=== PATIENT | male | born 1955 | race Caucasian/White ===

== ENCOUNTER → 2017-05-01 | Day surgery (SDC) | payer OTHER, BC ==
[~2017-05-01] MED LIST: Lactated Ringers 1,000 ML IV SCH; Midazolam 1 MG/ML 2 ML SDV ONE; Ondansetron 4 MG Tab.DIS PO PRN; Ondansetron 4 MG/2 ML SDV ONE; Propofol 200 MG/20 ML SDV ONE; fentaNYL 100 MCG/2 ML SDV ONE
--- NOTE | 2017-05-01 10:51 | PCM.PREANE ---
Preanesthetic Assessment - Anesthesia/Transfusion/Family Hx Anesthesia History: Prior Anesthesia Without Reaction Family History of Anesthesia Reaction: No Transfusion History: No Prior Transfusion(s) - Review of Systems General: No Symptoms Pulmonary: No Symptoms Cardiovascular: No Symptoms Gastrointestinal: No Symptoms Neurological: No Symptoms Other: Reports: None - Physical Assessment NPO Status Date: 04/30/17 O2 Sat by Pulse Oximetry: 95 Respiratory Rate: 16 Vital Signs: Last Vital Signs Temp 36.1 C 05/01/17 09:39 Pulse 86 05/01/17 09:39 Resp 16 05/01/17 09:39 BP 136/79 05/01/17 09:39 Pulse Ox 95 05/01/17 09:39 Height: 1.83 m Weight: 98.883 kg ASA Class: 2 Mental Status: Alert & Oriented x3 Airway Class: Mallampati = 1 Dentition: Reports: Normal Dentition ROM/Head Extension: Full Lungs: Clear to Auscultation, Normal Respiratory Effort Cardiovascular: Regular Rate, Regular Rhythm - Allergies Allergies/Adverse Reactions: Allergies Allergy/AdvReac Type Severity Reaction Status Date / Time acetaminophen Allergy Itching Verified 04/26/17 11:32 [From Darvocet-N] allopurinol Allergy Rash Verified 04/26/17 11:32 propoxyphene Allergy Itching Verified 04/26/17 11:32 [From Darvocet-N] - Anesthesia Plan Pre-Op Medication Ordered: None - Acknowledgements Anesthesia Type Planned: MAC Pt an Appropriate Candidate for the Planned Anesthesia: Yes Alternatives and Risks of Anesthesia Discussed w Pt/Guardian: Yes Pt/Guardian Understands and Agrees with Anesthesia Plan: Yes PreAnesthesia Questionnaire Cardiovascular History: Reports: High Cholesterol Musculoskeletal History: Reports: Back Pain, Chronic, Gout Endocrine/Metabolic History: Reports: Diabetes, Type II - Past Surgical History Head Surgeries/Procedures: Reports: None Musculoskeletal Surgical History: Reports: Other (See Below) Other Musculoskeletal Surgeries/Procedures:: hx surgical excision of cyst - SUBSTANCE USE Smoking Status *Q: Never Smoker Recreational Drug Use History: No - HOME MEDS Home Medications: Home Meds Aspirin [Steuben Aspirin] 81 mg PO DAILY 04/26/17 [History] Cyclobenzaprine HCl 10 mg PO ASDIRECTED PRN 04/26/17 [History] Diclofenac Sodium [Voltaren] 75 mg PO BID PRN 04/26/17 [History] Multivitamin [Multivitamins] 1 tab PO DAILY 04/26/17 [History] Probenecid 500 mg PO BID 04/26/17 [History] Rosuvastatin Calcium 40 mg PO DAILY 04/26/17 [History] - CURRENT (IN HOUSE) MEDS Current Meds: Current Medications Lactated Ringer's (Ringers, Lactated) 1,000 mls @ 125 mls/hr IV ASDIRECTED MARY
--- NOTE | 2017-05-01 12:32 | PCM.OPNOTE ---
- General Post-Op/Procedure Note Date of Surgery/Procedure: 05/01/17 Operative Procedure(s): Colonoscopy with snare rectal polypectomy Pre Op Diagnosis: Desire for colorectal cancer screening Post-Op Diagnosis: Rectal polyp. Sigmoid diverticulosis. Anesthesia Technique: MAC (ASA II) Primary Surgeon: Darryl Garcia Mill Control Operator: Papi Betts Condition: Good Free Text/Narrative:: DICTATION [id number] CPT CODE 83030
--- NOTE | 2017-05-01 12:44 | PCM.POSTAN ---
POST ANESTHESIA ASSESSMENT - MENTAL STATUS Mental Status: Alert, Oriented - RESPIRATORY Respiratory Status: Respiratory Rate WNL, Airway Patent, O2 Saturation Stable - CARDIOVASCULAR CV Status: Pulse Rate WNL, Blood Pressure Stable - GASTROINTESTINAL GI Status: No Symptoms - POST OP HYDRATION Hydration Status: Adequate & Stable
--- NOTE | 2017-05-01 12:45 | PCM48HPAN ---
Post Anesthesia Note - EVALUATION WITHIN 48HRS OF ANESTHETIC Vital Signs in Normal Range: Yes Patient Participated in Evaluation: Yes Respiratory Function Stable: Yes Airway Patent: Yes Cardiovascular Function Stable: Yes Hydration Status Stable: Yes Pain Control Satisfactory: Yes Nausea and Vomiting Control Satisfactory: Yes Mental Status Recovered: Yes Resp Rate: 17
--- NOTE | 2017-05-02 09:43 | OR ---
SURGEON: Darryl Garcia M.D. DATE OF PROCEDURE: 05/01/2017 OPERATION PERFORMED: Colonoscopy with snare rectal polypectomy. STOCKFEED MILLER: Dr. Papi Betts, PGY3. ANESTHESIA: MAC. ASA CLASSIFICATION: II. PREOPERATIVE DIAGNOSIS: Desire for colorectal cancer screening. POSTOPERATIVE DIAGNOSES: 1. Rectal polyp. 2. Sigmoid diverticulosis. DESCRIPTION OF PROCEDURE: The patient was taken to the endoscopy room and positioned on the endoscopy table in the left lateral decubitus position. Time-out was called for appropriate identification of patient and procedure. Monitored anesthesia care was provided. The colonoscope was inserted into the rectum and advanced with minimal difficulty to the cecum, where the colonoscope was retroflexed to visualize the ascending colon from below. The colonoscope was then straightened and slowly withdrawn. The cecum, ascending colon, hepatic flexure, transverse colon, splenic flexure, and descending colon showed no tumors, polyps, diverticula, or angiodysplastic changes. Sigmoid colon demonstrates moderate diverticular change. No stricture, spasm, or bleeding was noted. The colonoscope was then withdrawn to the distal rectum, where a 1 cm polyp was identified. This was removed with the snare electrocautery and recovered. The surgical site was inspected for hemostasis, and no bleeding was noted. The colonoscope was then retroflexed in the rectum to visualize the anal orifice from above. Again, no tumors or polyps were seen, and there were no acute hemorrhoidal changes. The colonoscope was then straightened, the rectum aspirated, and the colonoscope removed. The patient tolerated the procedure well and was taken to recovery room in stable condition. SIMI / JIHAN /[id number]
== END | disposition home or self-care (01) ==
LOC: MW.SDS 09:30
PROVIDERS: ATTEND Surgery
DX: Z12.11 Encounter for screening for malignant neoplasm of colon (principal); D12.7 Benign neoplasm of rectosigmoid junction; K57.30 Diverticulosis of large intestine without perforation or abscess without bleeding; K40.20 Bilateral inguinal hernia, without obstruction or gangrene, not specified as recurrent; M19.90 Unspecified osteoarthritis, unspecified site; M10.9 Gout, unspecified; E78.00 Pure hypercholesterolemia, unspecified; E11.9 Type 2 diabetes mellitus without complications; F17.210 Nicotine dependence, cigarettes, uncomplicated; Z88.8 Allergy status to other drugs, medicaments and biological substances; Z79.82 Long term (current) use of aspirin; Z79.899 Other long term (current) drug therapy
CPT/HCPCS: 45385; 88305; J2250; J2405; J3010; 00811; J2704

== ENCOUNTER 2017-05-05 07:33 | Day surgery (SDC) | payer BC, OTHER ==
--- NOTE | 2017-05-05 07:22 | PCM.PREANE ---
Preanesthetic Assessment - Anesthesia/Transfusion/Family Hx Anesthesia History: Prior Anesthesia Without Reaction Family History of Anesthesia Reaction: No Transfusion History: No Prior Transfusion(s) - Review of Systems General: No Symptoms Pulmonary: No Symptoms Cardiovascular: No Symptoms Gastrointestinal: No Symptoms Neurological: No Symptoms Other: Reports: None - Physical Assessment NPO Status Date: 05/04/17 Height: 1.83 m Weight: 98.883 kg ASA Class: 2 Mental Status: Alert & Oriented x3 Airway Class: Mallampati = 1 Dentition: Reports: Normal Dentition ROM/Head Extension: Full Lungs: Clear to Auscultation, Normal Respiratory Effort Cardiovascular: Regular Rate, Regular Rhythm - Allergies Allergies/Adverse Reactions: Allergies Allergy/AdvReac Type Severity Reaction Status Date / Time acetaminophen Allergy Itching Verified 05/02/17 07:37 [From Darvocet-N] allopurinol Allergy Rash Verified 05/02/17 07:37 propoxyphene Allergy Itching Verified 05/02/17 07:37 [From Darvocet-N] - Acknowledgements Anesthesia Type Planned: General Anesthesia Pt an Appropriate Candidate for the Planned Anesthesia: Yes Alternatives and Risks of Anesthesia Discussed w Pt/Guardian: Yes Pt/Guardian Understands and Agrees with Anesthesia Plan: Yes PreAnesthesia Questionnaire HEENT History: Reports: Other (See Below) Other HEENT History: wears glasses Cardiovascular History: Reports: High Cholesterol Gastrointestinal History: Reports: None Musculoskeletal History: Reports: Back Pain, Chronic, Gout Endocrine/Metabolic History: Reports: Diabetes, Type II - Past Surgical History Head Surgeries/Procedures: Reports: None GI Surgical History: Reports: Colonoscopy Musculoskeletal Surgical History: Reports: Other (See Below) Other Musculoskeletal Surgeries/Procedures:: hx surgical excision of cyst - SUBSTANCE USE Smoking Status *Q: Never Smoker Recreational Drug Use History: No - HOME MEDS Home Medications: Home Meds Aspirin [Prentiss Aspirin] 81 mg PO DAILY 04/26/17 [History] Cyclobenzaprine HCl 10 mg PO ASDIRECTED PRN 04/26/17 [History] Diclofenac Sodium [Voltaren] 75 mg PO BID PRN 04/26/17 [History] Multivitamin [Multivitamins] 1 tab PO DAILY 04/26/17 [History] Probenecid 500 mg PO BID 04/26/17 [History] Rosuvastatin Calcium 40 mg PO DAILY 04/26/17 [History] - CURRENT (IN HOUSE) MEDS Current Meds: Current Medications Lactated Ringer's (Ringers, Lactated) 1,000 mls @ 125 mls/hr IV ASDIRECTED MARY
[~2017-05-05 07:33] MED LIST changes: +Bupivacaine 0.5% 30 ML SDV ONE; +Lidocaine 2% 5 ML SDV ONE; -Ondansetron 4 MG Tab.DIS PO PRN; -Ondansetron 4 MG/2 ML SDV ONE; +ceFAZolin 1 GM Vial ONE
[2017-05-05] MEDS ORDERED: ePHEDrine 50 MG/ML SDV ONE (08:18)
[2017-05-05] MEDS ORDERED: fentaNYL 100 MCG/2 ML SDV IVPUSH PRN (08:27)
[2017-05-05] MEDS ORDERED: Morphine 10 MG/ML Syringe IVPUSH PRN (09:28)
[2017-05-05] MEDS ORDERED: Ondansetron 4 MG/2 ML SDV IVPUSH PRN (09:28)
[2017-05-05] MEDS ORDERED: Lactated Ringers 1,000 ML IV SCH (09:30)
[2017-05-05] MEDS ORDERED: traMADol 50 MG Tab PO PRN (09:33)
--- NOTE | 2017-05-05 09:40 | PCM.OPNOTE ---
- General Post-Op/Procedure Note Date of Surgery/Procedure: 05/05/17 Operative Procedure(s): Bilateral inguinal hernia repair with medium Bard PerFix plug and patch Pre Op Diagnosis: Bilateral reducible inguinal hernia Post-Op Diagnosis: Same Anesthesia Technique: General ET Tube (ASA II) Primary Surgeon: Darryl Garcia Fluid Replacement, Intraop: 1,200 EBL in mLs: 5 Condition: Good Free Text/Narrative:: Dictation [id number] CPT CODE 06150-74
[2017-05-05] MEDS ORDERED: Ondansetron 4 MG/2 ML SDV ONE (11:07)
[2017-05-05] MEDS ORDERED: traMADol 50 MG Tab ONE (11:08)
--- NOTE | 2017-05-05 11:28 | OR ---
SURGEON: Darryl Garcia M.D. DATE OF PROCEDURE: 05/05/2017 OPERATION PERFORMED: Bilateral inguinal hernia repair with medium Bard PerFix plug and patch. ANESTHESIA: General endotracheal. [place] [employer] CLASSIFICATION: II. PREOPERATIVE DIAGNOSIS: Bilateral reducible inguinal hernia. POSTOPERATIVE DIAGNOSIS: Bilateral reducible inguinal hernia. ESTIMATED BLOOD LOSS: 5 mL. INTRAOPERATIVE FLUID REPLACEMENT: 1200 mL of crystalloid. DESCRIPTION OF PROCEDURE: The patient was taken to the operating room and placed on the operating table in the supine position. Time-out was called for appropriate identification of the patient and procedure. Thigh-high TEDs and sequential compression boots were placed. The surgical sites had been marked and numbered prior to the patient entering the operating room. Following satisfactory attainment of general endotracheal anesthesia, the abdomen was prepped with DuraPrep solution. Sterile drapes were applied. The right groin was approached first. The skin was infiltrated with 10 mL of 0.5% Marcaine solution. The skin incision was made and deepened through the subcutaneous tissue obtaining hemostasis with the use of electrocautery. Dissection was carried down to the external oblique fascia, which was opened in the direction of its fibers. The external oblique was then retracted out of harm's way. 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 The internal ring is patulous. A medium Bard PerFix plug and patch was brought to the operating table and soaked in 1% Ancef solution. The plug was placed into the internal ring and secured with an 0 Ethibond suture. The patch was then placed over the floor of the canal bringing the wings of the patch around the cord. The patch was then secured medially and inferiorly to Remington's ligament transitioning to the inguinal ligament and superiorly to the transversalis fascia, again with multiple interrupted 0 Ethibond sutures. The wings of the patch were brought around the cord and secured with an 0 Ethibond suture. All sutures except the lateral stitch were secured. The patient was given a Valsalva maneuver to 50 cm of water and the repair was solid. The lateral suture was secured with care taken not to impinge on the cord. The wound was inspected for hemostasis and small bleeding sites were electrocoagulated. The external oblique was then returned to its normal anatomic location. This was closed with running 3-0 Vicryl. The Santos's fascia was closed with running 3-0 Vicryl and the skin edges were reapproximated with subcuticular 4-0 Monocryl reinforced with Steri- Strips. Our attention was now turned to the left side. Again, the skin was infiltrated with 10 mL of 0.5% Marcaine solution. The skin incision was again made and deepened through the subcutaneous tissue obtaining hemostasis with the use of electrocautery. The external oblique fascia was again opened in the direction of its fibers and retracted out of the way. The cord was again mobilized into the lipoma and a patulous internal ring were again encountered. A medium Bard PerFix plug and patch was again brought to the operating table and soaked in 1% Ancef solution. The plug was placed into the internal ring and secured with an 0 Ethibond suture. The patch was then placed over the inguinal floor with the wings brought around the cord. The patch was again secured medially and inferiorly to Remington's ligament transitioning to the inguinal ligament and superiorly to transversalis fascia with interrupted 0 Ethibond sutures. Once all sutures have been placed and secured except the lateral stitch, the patient was again given a Valsalva maneuver to 52 cm of water. The repair was again solid. The lateral suture was secured. Wound was inspected for hemostasis and the incision irrigated with 1% Ancef solution. The external oblique fascia was reapproximated with running 3-0 Vicryl. Santos's fascia was reapproximated with running 3-0 Vicryl. The skin edges were reapproximated with subcuticular 4-0 Monocryl. Both incisions were Steri-Stripped and dressed with sterile Tegaderm pads. Sponge, needle, and instrument counts were all correct. The patient tolerated the procedure well. Following emergence from anesthesia and extubation, he was taken to recovery room in satisfactory condition. SIMI / JIHAN /[id number]
--- NOTE | 2017-05-05 11:45 | PCM48HPAN ---
Post Anesthesia Note - EVALUATION WITHIN 48HRS OF ANESTHETIC Vital Signs in Normal Range: Yes Patient Participated in Evaluation: Yes Respiratory Function Stable: Yes Airway Patent: Yes Cardiovascular Function Stable: Yes Hydration Status Stable: Yes Pain Control Satisfactory: Yes Nausea and Vomiting Control Satisfactory: Yes Mental Status Recovered: Yes Resp Rate: 14 - COMMENTS/OBSERVATIONS Free Text/Narrative:: Has been out of bed to use toilet for urination. Advised need to use pain meds when local anesthetic wears off. Mechanics of getting out of bed discussed. In satisfactory condition for discharge to home when and RN agree all details have been completed.
== END 2017-05-05 12:01 | disposition home or self-care (01) ==
LOC: MW.SDS 07:33
PROVIDERS: ATTEND Surgery
DX: K40.20 Bilateral inguinal hernia, without obstruction or gangrene, not specified as recurrent (principal); E11.9 Type 2 diabetes mellitus without complications; M10.9 Gout, unspecified; G89.29 Other chronic pain; M54.9 Dorsalgia, unspecified; Z79.82 Long term (current) use of aspirin; Z79.899 Other long term (current) drug therapy; Z88.8 Allergy status to other drugs, medicaments and biological substances; Z98.890 Other specified postprocedural states
CPT/HCPCS: 49505; A9270; J0690; J2250; J2405; J3010; 00830; C1781; J2704